=== PATIENT | male | born 1945 | race Caucasian/White ===

== ENCOUNTER 2017-08-29 11:34 | Inpatient (IN) | payer MEDICARE, MEDICAID ==
[~2017-08-29] VITALS: Ht 182.9 cm; Wt 95.5 kg
[~2017-08-29 11:34] MED LIST: ALBU2.5V13 NEB; ASPI-1264 PO; BAC10T PO; CARV25TA PO; CEPH500C5 PO; CLON1TAB4 PO; DOCU-28 PO; FLO0.4C PO; FLUT16SP2 BOTHNARES; FLUT1DIS4 INH; FURO-149 PO; HYDR-565 PO; LIDO700A35 TP; POTA10TA15 PO
[2017-08-29 12:10] LABS: BASOPHILS # (AUTO) 0.1 X10'3 (0-0.2); BASOPHILS % (AUTO) 0.7 % (0-1); EOSINOPHILS # (AUTO) 0.1 X10'3 (0-0.9); HEMATOCRIT 43.4 % (42.0-52.0); LYMPHOCYTES # (AUTO) 1.5 X10'3 (1.1-4.8); LYMPHOCYTES % (AUTO) 16.7 % (21-51); MEAN CORPUSCULAR HEMOGLOBIN 27.7 PG (27.0-31.0); MEAN CORPUSCULAR HGB CONC 32.3 % (33.0-36.5); MEAN CORPUSCULAR VOLUME 85.8 FL (78-98); MEAN PLATELET VOLUME 9.6 FL (7.4-10.4); MONOCYTES # (AUTO) 0.9 X10'3 (0-0.9); MONOCYTES % (AUTO) 10.6 % (2-12); NEUTROPHILS # (AUTO) 6.2 X10'3 (1.8-7.7); PLATELET COUNT 318 X10'3 (140-440); RED BLOOD COUNT 5.06 X10'6 (4.70-6.10); RED CELL DISTRIBUTION WIDTH 21.9 % (11.5-14.5); WHITE BLOOD COUNT 8.7 X10'3 (4.5-11.0)
[2017-08-29 12:21] LABS: INR 1.2 INR; PARTIAL THROMBOPLASTIN TIME 26 SECONDS (22-32); PROTHROMBIN TIME 12.7 SECONDS (9.0-12.0)
[2017-08-29 12:26] LABS: ALANINE AMINOTRANSFERASE 58 U/L (12-78); ALBUMIN 3.8 G/DL (3.4-5.0); ALBUMIN/GLOBULIN RATIO 1.1 (1.1-1.5); ALKALINE PHOSPHATASE 148 IU/L (46-116); ASPARTATE AMINO TRANSFERASE 52 U/L (10-37); BILIRUBIN,TOTAL 0.9 MG/DL (0.1-1.0); BLOOD UREA NITROGEN 22 MG/DL (7-18); CALCIUM 9.4 MG/DL (8.5-10.1); CHLORIDE 96 MMOL/L (99-107); GLUCOSE 116 MG/DL (70-104); POTASSIUM 5.3 MMOL/L (3.5-5.1); TOTAL CARBON DIOXIDE 27.8 MMOL/L (24-32); TOTAL PROTEIN 7.2 G/DL (6.4-8.2); eGFR 66 ML/MIN
[2017-08-29] MEDS ORDERED: dexamethasone sod phosphate 10mg/ml inj IV STA (12:51)
[2017-08-29 12:55] LABS: ANION GAP 6 (8-16); SODIUM 130 MMOL/L (135-145)
[2017-08-29] MEDS ORDERED: diltiazem 5mg/ml 5ml inj. IV ONE ×2 (12:55→14:10)
[2017-08-29] MEDS ORDERED: ipratropium/albuterol 3ml nebule NEB ONE (12:55)
[2017-08-29 13:25] LABS: D-DIMER 0.82 MG/L FEU (0-0.50)
[2017-08-29 13:26] LABS: ABG BASE EXCESS -0.5 mmol/L (-2.0-3.0); ABG HCO3 22.7 mmol/L (22.0-26.0); ABG OXYGEN SATURATION 94.9 % (95-98); ABG PCO2 (T) 32.4 mmHg (35.0-48.0); ABG PO2 (T) 70.6 mmHg (83-108); ALLEN'S TEST Positive; FCOHb 0.9 % (0.5-1.5); PATIENT TEMPERATURE 36.4; TOTAL HEMOGLOBIN 14.3 G/dl (14.0-18.0)
[2017-08-29] MEDS ORDERED: normal saline 1000ml 1,000 ML IV SCH (13:48)
[2017-08-29] MEDS ORDERED: magnesium hydroxide 30ml (MOM) UD suspension PO PRN (13:50)
[2017-08-29] MEDS ORDERED: acetaminophen 325mg tablet PO PRN (13:50)
[2017-08-29] MEDS ORDERED: ondansetron/PF 4mg/2ml inj IV PRN (13:50)
[2017-08-29] MEDS ORDERED: mag hydrox/Alum hydrox/simeth 30ml oral suspension PO PRN (13:50)
[2017-08-29] MEDS ORDERED: iohexol 350MG/ML 100ml bottle IV ONE (13:52)
[2017-08-29] MEDS ORDERED: heparin 10,000 units/1 ML INJ IV ONE (14:00)
[2017-08-29] MEDS ORDERED: sodium polystyrene sulfonate 15gm/60ml oral suspension PO ONE (14:35)
[2017-08-29] MEDS ORDERED: cloNIDine 0.1 mg tablet PO ONE (14:40)
[2017-08-29] MEDS: ipratropium 0.5 MG/2.5ML nebule IH SCH ×2 (15:00→20:22)
[2017-08-29] MEDS ORDERED: clonazePAM 1mg tablet PO PRN (15:50)
[2017-08-29] MEDS ORDERED: nicotine 21mg patch - 24 hr TD ONE (15:55)
[2017-08-29 16:42] VITALS: BP 128/87
[2017-08-29] MEDS: metoprolol tartrate 1mg/ml inj IV SCH (17:59)
[2017-08-29 20:00] VITALS: BP 117/91
[2017-08-29] MEDS ORDERED: docusate sod 100mg capsule PO SCH (20:00)
[2017-08-29] MEDS ORDERED: furosemide 10 MG/1 ML 10ml inj IV SCH (20:00)
[2017-08-29] MEDS ORDERED: metoprolol tartrate 1mg/ml inj IV SCH (20:00)
[2017-08-29] MEDS ORDERED: temazepam 15mg capsule PO PRN (21:00)
[2017-08-29 22:00] VITALS: BP 100/70
[2017-08-29] MEDS: baclofen 10mg tablet PO SCH (22:10)
[2017-08-29] MEDS: diltiazem 30mg tablet PO SCH (22:10)
[2017-08-29] MEDS: carVEDilol 12.5mg tablet PO SCH (22:11)
[2017-08-29] MEDS: methylPREDNISolone sod succ 125mg/2ml vial IV SCH (22:11)
[2017-08-29] MEDS: enoxaparin 100mg/ml syringe SUBCUT SCH (22:12)
[2017-08-30 02:00] VITALS: BP 95/61
[2017-08-30] MEDS: metoprolol tartrate 1mg/ml inj IV SCH ×4 (02:00→21:32)
[2017-08-30] MEDS: diltiazem 30mg tablet PO SCH ×4 (02:00→21:30)
[2017-08-30] MEDS: methylPREDNISolone sod succ 125mg/2ml vial IV SCH ×4 (03:04→21:30)
[2017-08-30] MEDS: ipratropium 0.5 MG/2.5ML nebule IH SCH ×6 (03:56→23:00)
[2017-08-30 05:30] VITALS: BP 110/55
[2017-08-30 06:23] LABS: BASOPHILS % (AUTO) 0.3 % (0-1); EOSINOPHILS % (AUTO) 0.5 % (0-6); HEMATOCRIT 38.7 % (42.0-52.0); HEMOGLOBIN 12.8 g/dl (14.0-17.9); LYMPHOCYTES # (AUTO) 0.7 X10'3 (1.1-4.8); LYMPHOCYTES % (AUTO) 16.7 % (21-51); MEAN CORPUSCULAR HEMOGLOBIN 27.9 PG (27.0-31.0); MEAN CORPUSCULAR VOLUME 84.5 FL (78-98); MEAN PLATELET VOLUME 10.2 FL (7.4-10.4); MONOCYTES # (AUTO) 0.1 X10'3 (0-0.9); MONOCYTES % (AUTO) 3.2 % (2-12); NEUTROPHILS # (AUTO) 3.1 X10'3 (1.8-7.7); NEUTROPHILS % (AUTO) 79.3 % (42-75); PLATELET COUNT 302 X10'3 (140-440); RED BLOOD COUNT 4.59 X10'6 (4.70-6.10); RED CELL DISTRIBUTION WIDTH 21.7 % (11.5-14.5); WHITE BLOOD COUNT 3.9 X10'3 (4.5-11.0)
[2017-08-30 06:53] LABS: ALBUMIN 3.2 G/DL (3.4-5.0); ANION GAP 10 (8-16); BLOOD UREA NITROGEN 28 MG/DL (7-18); BUN/CREATININE RATIO 23.1 (5.4-32.0); CALCIUM 8.4 MG/DL (8.5-10.1); CHLORIDE 98 MMOL/L (99-107); CREATININE 1.21 MG/DL (0.60-1.10); GLUCOSE 139 MG/DL (70-104); POTASSIUM 4.2 MMOL/L (3.5-5.1); SODIUM 133 MMOL/L (135-145); TOTAL CARBON DIOXIDE 24.8 MMOL/L (24-32); eGFR 59 ML/MIN
[2017-08-30 07:04] LABS: LARGE PLATELETS FEW; PLATELET ESTIMATE NORMAL
[2017-08-30] MEDS ORDERED: docusate sod 100mg capsule PO PRN (07:25)
[2017-08-30] MEDS ORDERED: normal saline 500ml IV soln 1,000 ML IV SCH (07:35)
[2017-08-30] MEDS: fluticasone nasal spray 16GM bottle NS SCH (08:00)
[2017-08-30] MEDS ORDERED: enoxaparin 40mg/0.4ml syringe SQ SCH (08:00)
[2017-08-30] MEDS: baclofen 10mg tablet PO SCH ×3 (08:00→21:30)
[2017-08-30] MEDS ORDERED: POTASSIUM CHLORIDE 30 MEQ PO SCH (08:00)
[2017-08-30] MEDS: carVEDilol 12.5mg tablet PO SCH ×2 (09:13→21:30)
[2017-08-30] MEDS: LACTOBACILLUS RHAMNOSUS GG 15 billion unit sprinkle caps PO SCH (09:13)
[2017-08-30] MEDS: aspirin 325mg tablet PO SCH (09:13)
[2017-08-30] MEDS: levoFLOXACIN-Levaquin 750MG/D5 150 ML IV SCH (09:14)
[2017-08-30] MEDS: tamsulosin 0.4mg capsule PO SCH (09:14)
[2017-08-30] MEDS: enoxaparin 100mg/ml syringe SUBCUT SCH ×2 (09:15→21:31)
[2017-08-30 14:00] VITALS: BP 95/48
[2017-08-30 15:00] VITALS: BP 89/59
[2017-08-30 22:00] VITALS: BP 118/59
[2017-08-31 02:00] VITALS: BP 106/58
[2017-08-31] MEDS: methylPREDNISolone sod succ 125mg/2ml vial IV SCH ×2 (02:33→07:23)
[2017-08-31] MEDS: diltiazem 30mg tablet PO SCH ×3 (02:33→10:07)
[2017-08-31] MEDS: metoprolol tartrate 1mg/ml inj IV SCH ×2 (02:34→07:19)
[2017-08-31] MEDS: ipratropium 0.5 MG/2.5ML nebule IH SCH ×3 (03:00→11:00)
[2017-08-31 06:00] VITALS: BP 110/70
[2017-08-31 06:40] LABS: BASOPHILS % (AUTO) 0 % (0-1); EOSINOPHILS % (AUTO) 0 % (0-6); HEMATOCRIT 41.8 % (42.0-52.0); HEMOGLOBIN 13.7 g/dl (14.0-17.9); LYMPHOCYTES # (AUTO) 0.8 X10'3 (1.1-4.8); LYMPHOCYTES % (AUTO) 7.5 % (21-51); MEAN CORPUSCULAR HGB CONC 32.9 % (33.0-36.5); MEAN PLATELET VOLUME 9.9 FL (7.4-10.4); MONOCYTES # (AUTO) 0.5 X10'3 (0-0.9); MONOCYTES % (AUTO) 4.8 % (2-12); NEUTROPHILS # (AUTO) 9.8 X10'3 (1.8-7.7); NEUTROPHILS % (AUTO) 87.7 % (42-75); PLATELET COUNT 323 X10'3 (140-440); RED BLOOD COUNT 4.91 X10'6 (4.70-6.10); RED CELL DISTRIBUTION WIDTH 21.7 % (11.5-14.5); WHITE BLOOD COUNT 11.2 X10'3 (4.5-11.0)
[2017-08-31 07:02] LABS: LARGE PLATELETS FEW; PLATELET ESTIMATE NORMAL
[2017-08-31 07:03] LABS: ALBUMIN 3.3 G/DL (3.4-5.0); ANION GAP 8 (8-16); BLOOD UREA NITROGEN 34 MG/DL (7-18); BUN/CREATININE RATIO 23.6 (5.4-32.0); CALCIUM 9.1 MG/DL (8.5-10.1); CHLORIDE 96 MMOL/L (99-107); CREATININE 1.44 MG/DL (0.60-1.10); GLUCOSE 132 MG/DL (70-104); POTASSIUM 4.6 MMOL/L (3.5-5.1); SODIUM 131 MMOL/L (135-145); TOTAL CARBON DIOXIDE 26.7 MMOL/L (24-32); eGFR 48 ML/MIN
[2017-08-31] MEDS: levoFLOXACIN-Levaquin 750MG/D5 150 ML IV SCH (07:18)
[2017-08-31] MEDS: baclofen 10mg tablet PO SCH ×2 (07:19→10:06)
[2017-08-31] MEDS: tamsulosin 0.4mg capsule PO SCH ×2 (07:19→10:07)
[2017-08-31] MEDS: aspirin 325mg tablet PO SCH ×2 (07:20→10:07)
[2017-08-31] MEDS: carVEDilol 12.5mg tablet PO SCH ×2 (07:20→10:07)
[2017-08-31] MEDS: LACTOBACILLUS RHAMNOSUS GG 15 billion unit sprinkle caps PO SCH ×2 (07:20→10:07)
[2017-08-31] MEDS: enoxaparin 100mg/ml syringe SUBCUT SCH (07:21)
[2017-08-31] MEDS: fluticasone nasal spray 16GM bottle NS SCH (07:32)
[2017-08-31] MEDS ORDERED: normal saline 500ml IV soln 1,000 ML IV ONE (07:35)
== END 2017-08-31 15:00 | disposition expired | DRG 291 ==
LOC: ER 11:34 → ED HOLD 13:48 → MED 3N 16:14 → PCU 3S 19:20
PROVIDERS: ADMIT Family Medicine; ATTEND Family Medicine
PROC: B32T1ZZ Computerized Tomography (CT Scan) of Left Pulmonary Artery using Low Osmolar Contrast (ICD-10-PCS; principal; 2017-08-29)
PROC: B3201ZZ Computerized Tomography (CT Scan) of Thoracic Aorta using Low Osmolar Contrast (ICD-10-PCS; 2017-08-29)
PROC: B32S1ZZ Computerized Tomography (CT Scan) of Right Pulmonary Artery using Low Osmolar Contrast (ICD-10-PCS; 2017-08-29)
PROC: 5A12012 Performance of Cardiac Output, Single, Manual (ICD-10-PCS; 2017-08-31)
PROC: 0BH17EZ Insertion of Endotracheal Airway into Trachea, Via Natural or Artificial Opening (ICD-10-PCS; 2017-08-31)
PROC: 3E03317 Introduction of Other Thrombolytic into Peripheral Vein, Percutaneous Approach (ICD-10-PCS; 2017-08-31)
DX: I11.0 Hypertensive heart disease with heart failure (principal); I26.99 Other pulmonary embolism without acute cor pulmonale; J96.20 Acute and chronic respiratory failure, unspecified whether with hypoxia or hypercapnia; N17.9 Acute kidney failure, unspecified; I48.91 Unspecified atrial fibrillation; G62.9 Polyneuropathy, unspecified; E66.01 Morbid (severe) obesity due to excess calories; E87.1 Hypo-osmolality and hyponatremia; J44.1 Chronic obstructive pulmonary disease with (acute) exacerbation; I46.9 Cardiac arrest, cause unspecified; I25.10 Atherosclerotic heart disease of native coronary artery without angina pectoris; I50.23 Acute on chronic systolic (congestive) heart failure; E78.00 Pure hypercholesterolemia, unspecified; E78.5 Hyperlipidemia, unspecified; F12.90 Cannabis use, unspecified, uncomplicated; G89.4 Chronic pain syndrome; K21.9 Gastro-esophageal reflux disease without esophagitis; N40.0 Benign prostatic hyperplasia without lower urinary tract symptoms; F41.9 Anxiety disorder, unspecified; M19.90 Unspecified osteoarthritis, unspecified site; M48.061 Spinal stenosis, lumbar region without neurogenic claudication; F17.210 Nicotine dependence, cigarettes, uncomplicated; Z90.01 Acquired absence of eye; Z91.19 Patient's noncompliance with other medical treatment and regimen; Z95.1 Presence of aortocoronary bypass graft; Z79.899 Other long term (current) drug therapy; Z79.82 Long term (current) use of aspirin; Z68.28 Body mass index [BMI] 28.0-28.9, adult; Z71.6 Tobacco abuse counseling; Z86.711 Personal history of pulmonary embolism
CPT/HCPCS: 36415; 36600; 71045; 71275; 74176; 80048; 80053; 82803; 83880; 84295; 84439; 84443; 84484; 85018; 85025; 85379; 85610; 85730; 87070; 87502; 87503; 92950; 93005; 93308; 94640; 94760; 96374; 96375; 99291; J1100; J1644; J1650; J1940; J1956; J2270; J2405; J2930; J3490; J7030; Q9967